=== PATIENT | female | born 1965 | race Caucasian/White ===

== ENCOUNTER → 2022-05-23 10:04 | Outpatient (BNVA) | payer BC, SELFPAY | PROVIDERS: Visit Provider Internal Medicine Rheumatology | DX: L40.50 Arthropathic psoriasis, unspecified (principal); L40.0 Psoriasis vulgaris; Z71.85 Encounter for immunization safety counseling; G37.3 Acute transverse myelitis in demyelinating disease of central nervous system; Z11.59 Encounter for screening for other viral diseases; Z79.899 Other long term (current) drug therapy | CPT/HCPCS: 36415; 72100; 72202; 80076; 82565; 85025; 85651; 86140; 86704; 86803; 87340 ==

== ENCOUNTER 2022-06-14 13:02 | Outpatient (CLI) | payer BC, SELFPAY ==
[2022-06-14 13:14] VITALS: BP 123/84; PULSE 71; RESP 18; TEMP 36.2; O2SAT 97
[2022-06-14 13:44] LABS: Basophils # 0.1 10^3/uL (0.0-0.1); Basophils % 0.5 %; Eosinophils # 0.3 10^3/uL (0.0-0.8); Eosinophils % 3.6 %; Hematocrit 47.4 % (37.0-47.0); Hemoglobin 15.2 g/dL (11.5-15.3); Lymphocytes # 2.9 10^3/uL (0.8-4.8); Lymphocytes % 32.1 %; Mean Corpuscular HGB Conc 32.1 g/dL (30.0-36.0); Mean Corpuscular Hemoglobin 28.4 pg (28.0-34.0); Mean Corpuscular Volume 88.4 fl (81-99); Monocytes # 0.6 10^3/uL (0.2-0.9); Monocytes % 6.5 %; Neutrophils # 5.19 10^3/uL (1.8-7.7); Neutrophils % 56.9 %; Nucleated Red Blood Cells % 0 %; Platelet Count 278 10^3/cmm (130-400); Red Blood Count 5.36 10^6/uL (4.1-5.3); Red Cell Distribution Width 13.1 % (12.1-15.1); White Blood Count 9.1 10^3/uL (4.0-10.0)
[2022-06-14] MEDS: sodium chloride 0.9% 250 ML 50 ML IV (13:46)
[2022-06-14] MEDS: acetaminophen 325 mg Tablet 650 MG PO (13:47)
[2022-06-14] MEDS: diphenhydrAMINE 50 mg/mL SDV 1mL 25 MG IVP (13:48)
[2022-06-14 13:54] LABS: Erythrocyte Sedimentation Rate 27 mm/hr (0-15)
[2022-06-14 14:09] LABS: Alanine Aminotransferase 21 U/L (0-33); Albumin Level 4.1 g/dL (3.5-5.2); Alkaline Phosphatase 72 U/L (35-105); Aspartate Amino Transferase 17 U/L (0-32); C Reactive Protein 20.7 mg/L (0.0-4.9); Globulin 3.5 g/dL (1.3-4.6); Glomerular Filtration Rate 128.6 mL/min (90-130); Total Bilirubin 0.2 mg/dL (0.15-1.2); Total Protein 7.6 g/dL (6.6-8.7)
[2022-06-14 14:50] VITALS: BP 136/83; PULSE 75; RESP 18; TEMP 36.1; O2SAT 98
== END 2022-06-14 13:03 | disposition home or self-care (01) ==
PROVIDERS: Referring Provider Internal Medicine Rheumatology; Visit Provider Internal Medicine Rheumatology
DX: L40.50 Arthropathic psoriasis, unspecified (principal); Z79.899 Other long term (current) drug therapy
CPT/HCPCS: 80076; 82565; 85025; 85651; 86140; 96365; 96375; A4222; J0129; J1200; J7050

== ENCOUNTER 2022-07-12 12:01 | Outpatient (CLI) | payer BC, SELFPAY ==
[2022-07-12 12:27] VITALS: BP 131/88; PULSE 77; RESP 18; TEMP 36.2; O2SAT 97
[2022-07-12] MEDS: sodium chloride 0.9% 250 ML 50 ML IV (12:47)
[2022-07-12] MEDS: acetaminophen 325 mg Tablet 650 MG PO (12:47)
[2022-07-12] MEDS: diphenhydrAMINE 50 mg/mL SDV 1mL 25 MG IVP (12:48)
[2022-07-12 14:00] VITALS: BP 126/78; PULSE 70; RESP 18; TEMP 36.6; O2SAT 95
== END 2022-07-12 12:02 | disposition home or self-care (01) ==
LOC: ONCMED 12:04
PROVIDERS: Referring Provider Internal Medicine Rheumatology; Visit Provider Internal Medicine Rheumatology
DX: L40.50 Arthropathic psoriasis, unspecified (principal)
CPT/HCPCS: 96365; 96375; A4222; J0129; J1200; J7050

== ENCOUNTER 2022-08-09 10:19 | Outpatient (CLI) | payer BC, SELFPAY ==
[2022-08-09 11:00] VITALS: BP 140/93; PULSE 68; RESP 18; TEMP 36.2; O2SAT 99
[2022-08-09] MEDS: sodium chloride 0.9% 250 ML 75 ML IV (11:13)
[2022-08-09] MEDS: acetaminophen 325 mg Tablet 650 MG PO (11:13)
[2022-08-09] MEDS: diphenhydrAMINE 50 mg/mL SDV 1mL 25 MG IVP (11:14)
[2022-08-09 12:21] VITALS: BP 128/80; PULSE 71; RESP 18; TEMP 36.1; O2SAT 97
== END 2022-08-09 10:20 | disposition home or self-care (01) ==
PROVIDERS: PCP Family Medicine; Visit Provider Internal Medicine Rheumatology
DX: L40.50 Arthropathic psoriasis, unspecified (principal)
CPT/HCPCS: 96365; 96375; A4222; J0129; J1200; J7050

== ENCOUNTER 2022-09-06 09:55 | Oncology outpatient (recurring) (ONCR) | payer BC, SELFPAY ==
[2022-09-06 10:14] VITALS: BP 113/77; PULSE 69; RESP 16; TEMP 35.9; O2SAT 99
[2022-09-06] MEDS: acetaminophen 325 mg Tablet 650 MG PO (10:35)
[2022-09-06] MEDS: diphenhydrAMINE 50 mg/mL SDV 1mL 25 MG IVP (10:38)
[2022-09-06] MEDS: sodium chloride 0.9% 250 ML 75 ML IV (10:38)
[2022-09-06] MEDS: abatacept 1,000 MG in sodium chloride 0.9% (100 ml) 100 ML 200 MG IV (10:50)
[2022-09-06 10:58] LABS: Erythrocyte Sedimentation Rate 17 mm/hr (0-15)
[2022-09-06 11:04] LABS: Basophils % 0.4 %; Eosinophils # 0.2 10^3/uL (0.0-0.8); Eosinophils % 1.9 %; Hematocrit 46.2 % (37.0-47.0); Hemoglobin 14.9 g/dL (11.5-15.3); Lymphocytes # 2.9 10^3/uL (0.8-4.8); Lymphocytes % 35.3 %; Mean Corpuscular HGB Conc 32.3 g/dL (30.0-36.0); Mean Corpuscular Hemoglobin 28.8 pg (28.0-34.0); Mean Corpuscular Volume 89.4 fl (81-99); Mean Platelet Volume 11.2 fL (7.4-10.4); Monocytes # 0.6 10^3/uL (0.2-0.9); Monocytes % 6.7 %; Neutrophils # 4.58 10^3/uL (1.8-7.7); Neutrophils % 55.2 %; Nucleated Red Blood Cells % 0 %; Platelet Count 282 10^3/cmm (130-400); Red Blood Count 5.17 10^6/uL (4.1-5.3); Red Cell Distribution Width 12.8 % (12.1-15.1); White Blood Count 8.3 10^3/uL (4.0-10.0)
[2022-09-06 11:28] LABS: Alanine Aminotransferase 24 U/L (0-33); Albumin Level 4.5 g/dL (3.5-5.2); Alkaline Phosphatase 73 U/L (35-105); Aspartate Amino Transferase 24 U/L (0-32); C Reactive Protein 16.7 mg/L (0.0-4.9); Globulin 2.7 g/dL (1.3-4.6); Glomerular Filtration Rate 87.2 mL/min (90-130); Total Bilirubin 0.4 mg/dL (0.15-1.2); Total Protein 7.2 g/dL (6.6-8.7)
[2022-09-06 11:30] VITALS: BP 110/72; PULSE 72; RESP 16; TEMP 36.3; O2SAT 97
== END 2022-10-06 23:59 | disposition home or self-care (01) ==
PROVIDERS: PCP Nurse Practitioner Family; Visit Provider Internal Medicine Rheumatology
DX: L40.50 Arthropathic psoriasis, unspecified (principal); Z79.899 Other long term (current) drug therapy
CPT/HCPCS: 80076; 82565; 85025; 85651; 86140; 96365; 96375; J0129; J1200; J7050

== ENCOUNTER 2022-11-02 10:23 | Oncology outpatient (recurring) (ONCR) | payer BC, SELFPAY ==
[2022-11-02] MEDS: acetaminophen 325 mg Tablet 650 MG PO (11:10)
[2022-11-02] MEDS: diphenhydrAMINE 50 mg/mL SDV 1mL 25 MG IVP (11:15)
[2022-11-02] MEDS: abatacept 1,000 MG in sodium chloride 0.9% (100 ml) 100 ML 200 MG IV (12:19)
[2022-11-02 13:00] VITALS: BP 136/80; PULSE 80; RESP 16; TEMP 36.8; O2SAT 98
--- NOTE | 2022-11-02 16:14 | PC.NURSE ---
Patient arrived today for her orencia treatment. She voiced being unhappy about treatment not happening at her scheduled time. she left prior to her infusion being completed. approximately 25% of her infusion was wasted.
== END 2022-11-05 23:59 | disposition home or self-care (01) ==
PROVIDERS: PCP Nurse Practitioner Family; Visit Provider Internal Medicine Rheumatology
DX: L40.50 Arthropathic psoriasis, unspecified (principal)
CPT/HCPCS: 96365; 96375; 96413; J0129; J1200

== ENCOUNTER → 2022-12-05 10:40 | Outpatient (BNVA) | payer BC, SELFPAY | PROVIDERS: PCP Nurse Practitioner Family; Visit Provider Internal Medicine Rheumatology | DX: L40.0 Psoriasis vulgaris (principal); L40.50 Arthropathic psoriasis, unspecified; Z71.85 Encounter for immunization safety counseling; G37.3 Acute transverse myelitis in demyelinating disease of central nervous system; Z79.899 Other long term (current) drug therapy | CPT/HCPCS: 36415; 80076; 82565; 85025; 86140 ==

== ENCOUNTER → 2023-12-20 15:57 | Outpatient (BNVA) | payer BC, SELFPAY | PROVIDERS: PCP Nurse Practitioner Family; Visit Provider Internal Medicine Rheumatology | DX: Z79.899 Other long term (current) drug therapy (principal); L40.50 Arthropathic psoriasis, unspecified; Z11.1 Encounter for screening for respiratory tuberculosis; L40.0 Psoriasis vulgaris; Z71.85 Encounter for immunization safety counseling; G37.3 Acute transverse myelitis in demyelinating disease of central nervous system | CPT/HCPCS: 36415; 80076; 82565; 85025; 86140; 86480 ==